=== PATIENT | male | born 1945 ===

== ENCOUNTER 2019-01-10 18:08 | Emergency (ER) | payer MEDICARE, OTHER ==
[2019-01-10] MEDS ORDERED: Lidocaine 1% 10 ML MDV ONE (18:20)
[2019-01-10] MEDS ORDERED: Diphtheria/Tetanus Toxoids,Adult (Td) 0.5 ML SDV IM ONE (18:37)
--- NOTE | 2019-01-10 18:58 | ER ---
HISTORY OF PRESENT ILLNESS: A 73-year-old male here with his . The patient was helping his grandson doing something with their fishing pole. He was going to cut some line with a fillet knife any he cut his left index finger. He stated that it did bleed quite profusely initially. They held pressure to the site and eventually the bleeding got better. The patient did not lose any function of the finger and denies any other injuries. He has not had a tetanus shot in many years. OBJECTIVE: GENERAL APPEARANCE: The patient is awake and alert, no obvious distress. VITAL SIGNS: Reviewed as listed. PHYSICAL EXAM: Examining the left index finger reveals a U- shaped laceration over the medial and dorsal aspect of the finger just distal to the DIP joint. With mild pressure, the wound edges open up and there was some bleeding that is recurring. The patient can flex and extend the finger fully and has good strength against resistance, both with flexion and extension. DIAGNOSIS: Laceration to finger. TREATMENT PLAN: A tourniquet was applied to the base of the finger after which I injected 1% lidocaine without epi for anesthesia locally. We then acquired a sterile field and I cleansed the wound well with a Betadine/sterile water solution followed by suturing. I used 5-0 Ethilon and it required 7 sutures to close the wound. The wound measures 3 cm in length. The tourniquet at the base of the finger was promptly removed. Post care, the patient will have a pressure dressing applied by nursing staff. He is to keep this on for at least 24 hours up to 48 hours if it stays clean and dry. They are to monitor for infection. Tylenol can be used as needed for pain. The sutures should come out in about 10 days because this is in an area where there was some skin tension. Followup is sooner on a p.r.n. basis. The patient will get a tetanus shot this evening. His is a nurse. They have no further questions. CRS/MODL /[id number]
== END 2019-01-10 18:40 | disposition home or self-care (01) ==
LOC: LB.ED 18:08
DX: S61.211A Laceration without foreign body of left index finger without damage to nail, initial encounter (principal); Z23 Encounter for immunization; W26.0XXA Contact with knife, initial encounter
CPT/HCPCS: 12002; 90471; 90714; 99282; J2001

== ENCOUNTER 2021-06-08 10:17 | Emergency (ER) | payer MEDICARE ==
[2021-06-08] MEDS ORDERED: IMDEVIMAB IV SCH (13:00)
[2021-06-08] MEDS ORDERED: Sodium Chloride 0.9% 1,000 ML IV SCH (13:00)
[2021-06-08] MEDS ORDERED: CASIRIVIMAB IV SCH (13:00)
[2021-06-08] MEDS ORDERED: SODIUM CHLORIDE 0.9% IV SCH (13:00)
--- NOTE | 2021-06-08 14:18 | EDM.PDOC ---
ED HPI GENERAL MEDICAL PROBLEM - General Chief Complaint: Respiratory Problem Stated Complaint: RESPIRATORY Time Seen by Provider: 06/08/21 10:30 - History of Present Illness INITIAL COMMENTS - FREE TEXT/NARRATIVE: Pt comes in with C/O not feeling well. He has coughing, and feels run down. This has been going on for almost 2 weeks. He is concerned about Covid. - Related Data Allergies Allergy/AdvReac Type Severity Reaction Status Date / Time No Known Allergies Allergy Verified 06/08/21 10:50 Home Meds: Home Meds FLUoxetine HCl [Prozac] 20 mg PO DAILY 06/08/21 [History] Past Medical History Psychiatric History: Reports: Anxiety Other Dermatologic History: shingles - Infectious Disease History Infectious Disease History: Reports: Shingles Social & Family History - Tobacco Use Tobacco Use Status *Q: Former Tobacco User Used Tobacco, but Quit: Yes Month/Year Tobacco Last Used: 05/22/21 ED ROS GENERAL - Review of Systems Review Of Systems: Comprehensive ROS is negative, except as noted in HPI. Constitutional: Reports: Weakness Respiratory: Reports: Cough ED EXAM, GENERAL - Physical Exam Exam: See Below General Appearance: Other (pt looks a little pale. No respiratory disresss.) Course - Vital Signs Last Recorded V/S: Last Vital Signs Temp 98.5 F 06/08/21 10:17 Pulse 89 06/08/21 10:17 Resp 16 06/08/21 10:17 BP 111/70 06/08/21 10:17 Pulse Ox 90 L 06/08/21 10:17 - Orders/Labs/Meds Orders: Active Orders 24 hr Category Date Time Status Imdevimab [Imdevimab (EUA)] 600 mg Med 06/08/21 13:00 Active Casirivimab [Casirivimab (EUA)] 600 mg Sodium Chloride 0.9% [Normal Saline] 100 ml IV ASDIRECTED Sodium Chloride 0.9% [Normal Saline] 1,000 ml Med 06/08/21 13:00 Active IV ASDIRECTED Medication Orders Sodium Chloride (Normal Saline) 1,000 mls @ 500 mls/hr IV ASDIRECTED LAKISHA Last Admin: 06/08/21 12:45 Dose: 500 mls/hr Documented by: WOJCIECH Non-Formulary Medication 600 mg/ Non-Formulary Medication 600 mg/ Sodium Chloride 110 mls @ 310 mls/hr IV ASDIRECTED LAKISHA Stop: 06/08/21 23:59 Last Admin: 06/08/21 13:10 Dose: 310 mls/hr Documented by: WOJCIECH Labs: Laboratory Tests 06/08/21 06/08/21 06/08/21 Range/Units 10:20 10:22 10:22 WBC 2.8 L (4.0-11.0) K/uL RBC 4.43 L (4.50-6.50) M/uL Hgb 13.6 (13.0-18.0) g/dL Hct 39.9 L (40.0-54.0) % MCV 90 (76-96) fL MCH 30.7 (27.0-32.0) pg MCHC 34.1 (31.0-35.0) g/dL RDW 13.8 (11.0-16.0) % Plt Count 84 L (150-400) K/uL MPV 11.4 H (6.0-10.0) fL Neut % (Auto) 80.2 H (45.0-70.0) % Lymph % (Auto) 10.6 L (20.0-40.0) % [place] % (Auto) 6.4 (3.0-10.0) % Eos % (Auto) 0.0 L (1.0-5.0) % Baso % (Auto) 2.8 H (0.0-0.5) % Neut # (Auto) 2.27 (2.00-7.50) K/uL Lymph # (Auto) 0.30 L (1.50-4.00) K/uL [place] # (Auto) 0.18 L (0.20-0.80) K/uL Eos # (Auto) 0.00 L (0.04-0.40) K/uL Baso # (Auto) 0.08 (0.02-0.10) K/uL Sodium 135 L (136-145) mmol/L Potassium 3.4 L (3.5-5.1) mmol/L Chloride 101 (98-107) mmol/L Carbon Dioxide 21.0 (21.0-32.0) mmol/L Anion Gap 16.4 H (5.0-15.0) mmol/L BUN 25 (8-26) mg/dL Creatinine 1.17 (0.70-1.30) mg/dL Est Cr Clr Drug Dosing 66.20 mL/min Estimated GFR (MDRD) > 60 (>60) MLS/MIN BUN/Creatinine Ratio 21.4 (6-25) Glucose 146 H (74-100) mg/dL Calcium 8.3 L (8.5-10.1) mg/dL Total Bilirubin 1.2 H (0.0-1.0) mg/dL AST 35 (15-37) U/L ALT 29 (12-78) U/L Alkaline Phosphatase 63 (46-116) U/L Total Protein 6.3 L (6.4-8.2) g/dL Albumin 3.0 L (3.4-5.0) g/dL Globulin 3.3 (2.2-4.2) g/dL Albumin/Globulin Ratio 0.9 (0.8-2.0) Urine Color Urine Appearance (CLEAR) Urine pH (5.0-8.0) Ur Specific [place] (1.003-1.030) Urine Protein (NEGATIVE) mg/dL Urine Glucose (UA) (NEGATIVE) mg/dL Urine Ketones (NEGATIVE) mg/dL Urine Occult Blood (NEGATIVE) Urine Nitrite (NEGATIVE) Urine Bilirubin (NEGATIVE) Urine Urobilinogen (0.2-1.0) E.U./dL Ur Leukocyte Esterase (NEGATIVE) Urine RBC /HPF Urine WBC /HPF Ur Squamous Epith Cells /HPF Amorphous Sediment /HPF SARS-CoV-2 RNA (OLIVIER) Positive H (NEGATIVE) 06/08/21 Range/Units 10:59 WBC (4.0-11.0) K/uL RBC (4.50-6.50) M/uL Hgb (13.0-18.0) g/dL Hct (40.0-54.0) % MCV (76-96) fL MCH (27.0-32.0) pg MCHC (31.0-35.0) g/dL RDW (11.0-16.0) % Plt Count (150-400) K/uL MPV (6.0-10.0) fL Neut % (Auto) (45.0-70.0) % Lymph % (Auto) (20.0-40.0) % [place] % (Auto) (3.0-10.0) % Eos % (Auto) (1.0-5.0) % Baso % (Auto) (0.0-0.5) % Neut # (Auto) (2.00-7.50) K/uL Lymph # (Auto) (1.50-4.00) K/uL [place] # (Auto) (0.20-0.80) K/uL Eos # (Auto) (0.04-0.40) K/uL Baso # (Auto) (0.02-0.10) K/uL Sodium (136-145) mmol/L Potassium (3.5-5.1) mmol/L Chloride (98-107) mmol/L Carbon Dioxide (21.0-32.0) mmol/L Anion Gap (5.0-15.0) mmol/L BUN (8-26) mg/dL Creatinine (0.70-1.30) mg/dL Est Cr Clr Drug Dosing mL/min Estimated GFR (MDRD) (>60) MLS/MIN BUN/Creatinine Ratio (6-25) Glucose (74-100) mg/dL Calcium (8.5-10.1) mg/dL Total Bilirubin (0.0-1.0) mg/dL AST (15-37) U/L ALT (12-78) U/L Alkaline Phosphatase (46-116) U/L Total Protein (6.4-8.2) g/dL Albumin (3.4-5.0) g/dL Globulin (2.2-4.2) g/dL Albumin/Globulin Ratio (0.8-2.0) Urine Color Yellow Urine Appearance Clear (CLEAR) Urine pH 6.0 (5.0-8.0) Ur Specific [place] >= 1.030 (1.003-1.030) Urine Protein 100 H (NEGATIVE) mg/dL Urine Glucose (UA) Negative (NEGATIVE) mg/dL Urine Ketones 15 H (NEGATIVE) mg/dL Urine Occult Blood Moderate H (NEGATIVE) Urine Nitrite Negative (NEGATIVE) Urine Bilirubin Small H (NEGATIVE) Urine Urobilinogen 2.0 H (0.2-1.0) E.U./dL Ur Leukocyte Esterase Negative (NEGATIVE) Urine RBC 0-5 H /HPF Urine WBC 0-5 H /HPF Ur Squamous Epith Cells Few /HPF Amorphous Sediment Many /HPF SARS-CoV-2 RNA (OLIVIER) (NEGATIVE) Meds: Medications Generic Name Dose Route Start Last Admin Trade Name Rodrigo PRN Reason Stop Dose Admin Sodium Chloride 1,000 mls @ 500 mls/hr 06/08/21 13:00 06/08/21 12:45 Normal Saline IV 500 mls/hr ASDIRECTED LAKISHA Administration Non-Formulary Medication 600 110 mls @ 310 mls/hr 06/08/21 13:00 06/08/21 13:10 mg/ Non-Formulary Medication IV 06/08/21 23:59 310 mls/hr 600 mg/ Sodium Chloride ASDIRECTED LAKISHA Administration - Re-Assessments/Exams Free Text/Narrative Re-Assessment/Exam: 06/08/21 14:15 Covid is positive. He was given Regeneron IV. His 02 sats have been around 93% on RA. He will be discharged home with an 02 monitor. Rest - take OTC meds as needed. Call or come back if his condition gets worse. Departure - Departure Time of Disposition: 14:30 Disposition: Home, Self-Care 01 Clinical Impression: COVID-19 - Discharge Information *PRESCRIPTION DRUG MONITORING PROGRAM REVIEWED*: No *COPY OF PRESCRIPTION DRUG MONITORING REPORT IN PATIENT SMITHA: No Referrals: PCP,None [Primary Care Provider] - Additional Instructions: Home - rest - Use OTC meds as needed. Monitor oxygen level as needed. Call or come back if condition gets worse. Sepsis Event Note (ED) - Evaluation Sepsis Screening Result: No Definite Risk - Focused Exam Vital Signs: Vital Signs Temp Pulse Resp BP Pulse Ox 06/08/21 10:17 98.5 F 89 16 111/70 90 L - My Orders Last 24 Hours: My Active Orders 06/08/21 13:00 Imdevimab [Imdevimab (EUA)] 600 mg Casirivimab [Casirivimab (EUA)] 600 mg Sodium Chloride 0.9% [Normal Saline] 100 ml IV ASDIRECTED Sodium Chloride 0.9% [Normal Saline] 1,000 ml IV ASDIRECTED - Assessment/Plan Last 24 Hours: My Active Orders 06/08/21 13:00 Imdevimab [Imdevimab (EUA)] 600 mg Casirivimab [Casirivimab (EUA)] 600 mg Sodium Chloride 0.9% [Normal Saline] 100 ml IV ASDIRECTED Sodium Chloride 0.9% [Normal Saline] 1,000 ml IV ASDIRECTED
== END 2021-06-08 14:15 | disposition home or self-care (01) ==
LOC: LB.ED 10:17
DX: U07.1 COVID-19 (principal); Z87.891 Personal history of nicotine dependence
CPT/HCPCS: 36415; 80053; 81001; 85025; 99283; J7030; M0243; Q0243; U0002

== ENCOUNTER 2021-07-09 10:00 | Inpatient (IN) | payer MEDICARE, OTHER ==
[~2021-07-09 10:00] MED LIST: Albuterol/Ipratropium 3.0-0.5 MG/3 ML Neb Soln NEB ONE
[2021-07-09] MEDS ORDERED: methylPREDNISolone Sodium Succinate 125 MG/2 ML SDV IVPUSH ONE (13:31)
[2021-07-09] MEDS ORDERED: methylPREDNISolone Sodium Succinate 125 MG/2 ML SDV ONE (13:50)
--- NOTE | 2021-07-09 15:25 | EDM.PDOC ---
ED HPI GENERAL MEDICAL PROBLEM - General Chief Complaint: Respiratory Problem Stated Complaint: O2 SATURATION LEVELS LOW Time Seen by Provider: 07/09/21 09:58 - History of Present Illness INITIAL COMMENTS - FREE TEXT/NARRATIVE: Pt is here with his with C/O SOB and some coughing. He has has these symptoms for several weeks after being diagnosed with Covid. But last night it got worse. Cough is dry, but he tells me he can't get enough air sometimes. - Related Data Allergies Allergy/AdvReac Type Severity Reaction Status Date / Time No Known Allergies Allergy Verified 07/09/21 11:09 Home Meds: Home Meds FLUoxetine HCl [Prozac] 20 mg PO DAILY 06/08/21 [History] Naproxen Sodium 1 tab PO DAILY 07/09/21 [History] Past Medical History Psychiatric History: Reports: Anxiety Other Psychiatric History: on prozac Other Dermatologic History: shingles - Infectious Disease History Infectious Disease History: Reports: Shingles - Past Surgical History Other Respiratory Surgeries/Procedures: Covid 19 infection may 2021 Social & Family History - Recreational Drug Use Recreational Drug Use: No ED ROS GENERAL - Review of Systems Review Of Systems: Comprehensive ROS is negative, except as noted in HPI. Respiratory: Reports: Shortness of Breath, Cough ED EXAM, GENERAL - Physical Exam Exam: See Below Free Text/Narrative:: Pt is a little anxious at first, but after getting 02 he calmed down quickly. Sats were in the lower 80's at first but came up to 95 quickly at 4 liters. Respiratory/Chest: Rhonchi (at end of expirations scattered.) #1 Interpretation EKG Date: 07/09/21 Time: 13:30 Rhythm: NSR (No acute changes.) Course - Vital Signs Last Recorded V/S: Last Vital Signs Temp 97.8 F 07/09/21 12:00 Pulse 75 07/09/21 14:33 Resp 20 07/09/21 14:33 BP 103/60 07/09/21 14:33 Pulse Ox 90 L 07/09/21 14:33 - Orders/Labs/Meds Orders: Active Orders 24 hr Category Date Time Status RT Aerosol Therapy [RC] ASDIRECTED Care 07/09/21 09:56 Active Chest 1V Frontal [CR] Stat Exams 07/09/21 09:58 Taken Chest w Cont [CT] Stat Exams 07/09/21 10:50 Taken Medication Orders Amoxicillin (Amoxicillin 500 Mg Cap) 1,000 mg PO Q8H LAKISHA Stop: 07/16/21 23:59 Azithromycin (Azithromycin 250 Mg Tab) 500 mg PO DAILY LAKISHA Stop: 07/13/21 23:59 Fluoxetine HCl (Fluoxetine 20 Mg Cap) 20 mg PO DAILY LAKISHA Labs: Laboratory Tests 07/09/21 07/09/21 07/09/21 Range/Units 09:56 09:56 09:57 WBC 5.8 D (4.0-11.0) K/uL RBC 3.92 L (4.50-6.50) M/uL Hgb 11.7 L (13.0-18.0) g/dL Hct 35.5 L (40.0-54.0) % MCV 91 (76-96) fL MCH 29.8 (27.0-32.0) pg MCHC 33.0 (31.0-35.0) g/dL RDW 15.0 (11.0-16.0) % Plt Count 186 D (150-400) K/uL MPV 10.9 H (6.0-10.0) fL Add Manual Diff Yes Neutrophils % (Manual) 82.0 H (45.0-70.0) % Lymphocytes % (Manual) 12.0 L (20.0-40.0) % Monocytes % (Manual) 5.0 (3.0-10.0) % Eosinophils % (Manual) 1.0 (1.0-5.0) % Differential Comment P[employer] Tender Plt Morphology Comment See note D-Dimer, Quantitative (0-400) ng/mL Sodium 138 (136-145) mmol/L Potassium 3.8 (3.5-5.1) mmol/L Chloride 106 (98-107) mmol/L Carbon Dioxide 21.0 (21.0-32.0) mmol/L Anion Gap 14.8 (5.0-15.0) mmol/L BUN 23 (8-26) mg/dL Creatinine 1.15 (0.70-1.30) mg/dL Est Cr Clr Drug Dosing 67.36 mL/min Estimated GFR (MDRD) > 60 (>60) MLS/MIN BUN/Creatinine Ratio 20.0 (6-25) Glucose 144 H (74-100) mg/dL Calcium 8.5 (8.5-10.1) mg/dL Total Bilirubin 1.6 H D (0.0-1.0) mg/dL AST 31 (15-37) U/L ALT 43 (12-78) U/L Alkaline Phosphatase 68 (46-116) U/L Troponin I < 0.017 (0.000-0.060) ng/mL Total Protein 6.1 L (6.4-8.2) g/dL Albumin 2.6 L (3.4-5.0) g/dL Globulin 3.5 (2.2-4.2) g/dL Albumin/Globulin Ratio 0.7 L (0.8-2.0) 07/09/21 Range/Units 09:57 WBC (4.0-11.0) K/uL RBC (4.50-6.50) M/uL Hgb (13.0-18.0) g/dL Hct (40.0-54.0) % MCV (76-96) fL MCH (27.0-32.0) pg MCHC (31.0-35.0) g/dL RDW (11.0-16.0) % Plt Count (150-400) K/uL MPV (6.0-10.0) fL Add Manual Diff Neutrophils % (Manual) (45.0-70.0) % Lymphocytes % (Manual) (20.0-40.0) % Monocytes % (Manual) (3.0-10.0) % Eosinophils % (Manual) (1.0-5.0) % Differential Comment Plt Morphology Comment D-Dimer, Quantitative 771 H (0-400) ng/mL Sodium (136-145) mmol/L Potassium (3.5-5.1) mmol/L Chloride (98-107) mmol/L Carbon Dioxide (21.0-32.0) mmol/L Anion Gap (5.0-15.0) mmol/L BUN (8-26) mg/dL Creatinine (0.70-1.30) mg/dL Est Cr Clr Drug Dosing mL/min Estimated GFR (MDRD) (>60) MLS/MIN BUN/Creatinine Ratio (6-25) Glucose (74-100) mg/dL Calcium (8.5-10.1) mg/dL Total Bilirubin (0.0-1.0) mg/dL AST (15-37) U/L ALT (12-78) U/L Alkaline Phosphatase (46-116) U/L Troponin I (0.000-0.060) ng/mL Total Protein (6.4-8.2) g/dL Albumin (3.4-5.0) g/dL Globulin (2.2-4.2) g/dL Albumin/Globulin Ratio (0.8-2.0) Meds: Medications Generic Name Dose Route Start Last Admin Trade Name Freq PRN Reason Stop Dose Admin Amoxicillin 1,000 mg 07/09/21 15:15 Amoxicillin 500 Mg Cap PO 07/16/21 23:59 Q8H LAKISHA Azithromycin 500 mg 07/09/21 15:15 Azithromycin 250 Mg Tab PO 07/13/21 23:59 DAILY LAKISHA Fluoxetine HCl 20 mg 07/10/21 08:00 Fluoxetine 20 Mg Cap PO DAILY LAKISHA Discontinued Medications Generic Name Dose Route Start Last Admin Trade Name Freq PRN Reason Stop Dose Admin Albuterol/Ipratropium 3 ml 07/09/21 09:55 07/09/21 10:00 Albuterol/Ipratropium 3.0-0.5 Mg/3 Ml Neb Soln NEB 07/09/21 09:56 3 ml ONETIME ONE Administration Methylprednisolone Sodium Succinate 125 mg 07/09/21 13:31 07/09/21 13:50 Methylprednisolone Sodium Succinate 125 Mg/2 Ml Sdv IVPUSH 07/09/21 13:32 125 mg ONETIME ONE Administration Methylprednisolone Sodium Succinate Confirm 07/09/21 13:50 07/09/21 14:32 Methylprednisolone Sodium Succinate 125 Mg/2 Ml Sdv Administered 07/09/21 13:51 Not Given Dose 125 mg .[address] [facility] ONE - Radiology Interpretation Free Text/Narrative:: CXR shows patchy infiltrates bilateral. D-Dimer is up at 770. other labs are ok. CT chest was done with PE protocol, showing Pneumonia including Covid. Pt is feeling well on O2 at 2 to 4 liters. When we try to wean down his sats drop into the 80's. We talked about sending him home, but can't get O2 to go with him. So we will admit the pt for Abx, IV fluids, and O2. Departure - Departure Time of Disposition: 15:00 Disposition: Admitted As Inpatient 68 Condition: Good Clinical Impression: Pneumonia Qualifiers: Pneumonia type: due to unspecified organism Laterality: bilateral Lung location: unspecified part of lung Qualified Code(s): J18.9 - Pneumonia, unspecified organism - Discharge Information *PRESCRIPTION DRUG MONITORING PROGRAM REVIEWED*: Yes *COPY OF PRESCRIPTION DRUG MONITORING REPORT IN PATIENT SMITHA: Yes Sepsis Event Note (ED) - Evaluation Sepsis Screening Result: No Definite Risk - Focused Exam Vital Signs: Vital Signs Temp Pulse Resp BP Pulse Ox 07/09/21 14:33 75 20 103/60 90 L 07/09/21 12:30 78 20 99/63 94 L 07/09/21 12:00 97.8 F 71 20 124/68 91 L 07/09/21 11:35 97.8 F 77 20 98/64 92 L 07/09/21 11:18 73 20 106/67 93 L 07/09/21 10:26 97.8 F 82 20 101/65 95 07/09/21 10:05 91 20 134/85 83 L 07/09/21 09:58 97.2 F 80 20 134/85 98 - My Orders Last 24 Hours: My Active Orders 07/09/21 09:56 RT Aerosol Therapy [RC] ASDIRECTED 07/09/21 09:58 Chest 1V Frontal [CR] Stat 07/09/21 10:50 Chest w Cont [CT] Stat - Assessment/Plan Last 24 Hours: My Active Orders 07/09/21 09:56 RT Aerosol Therapy [RC] ASDIRECTED 07/09/21 09:58 Chest 1V Frontal [CR] Stat 07/09/21 10:50 Chest w Cont [CT] Stat
--- NOTE | 2021-07-09 15:33 | CT ---
DATE OF SERVICE: 07/09/2021 CLINICAL DATA: SOB ENHANCED CHEST CT: Multislice acquisition through the chest with IV contrast was performed. No priors. No evidence of PE. No pneumothorax. No pleural effusions. No aortic aneurysm or dissection. There are extensive ground glass opacities scattered throughout both lungs with patchy areas of consolidation. Viral pneumonia is suspected. The heart size is normal. No significant pericardial effusion. There are moderate coronary artery calcifications. No hilar or mediastinal adenopathy. There is degenerative disc disease throughout the thoracic spine. No other significant findings. [id number] [facility]
--- NOTE | 2021-07-09 15:35 | CR ---
DATE OF SERVICE: 07/09/2021 CLINICAL DATA: SOB AP CHEST: No priors. The heart size is normal. There is calcification of the aortic arch. There are extensive patchy ground glass opacities throughout both lungs suspicious for viral pneumonia. No pneumothorax. No pleural effusions. [id number] [facility]
[2021-07-09] MEDS ORDERED: Sodium Chloride 0.9% 1,000 ML IV ONE (15:48)
[2021-07-09] MEDS: Azithromycin 250 MG Tab PO SCH (15:56)
[2021-07-09] MEDS: Amoxicillin 500 MG Cap PO SCH ×2 (15:56→22:02)
[2021-07-09] MEDS: Albuterol/Ipratropium 3.0-0.5 MG/3 ML Neb Soln NEB PRN ×2 (16:50→21:47)
--- NOTE | 2021-07-09 21:57 | ADMIT ---
HISTORY OF PRESENT ILLNESS: This 76-year-old male was being admitted through the ER for pneumonia and hypotension. The patient was diagnosed with covid in May and has been having some problems with coughing and shortness of breath, which got worse over the last 24 hours. He came into the ER today and was diagnosed with pneumonia and hypotension. The patient is being admitted for antibiotics, some IV fluids, and most importantly oxygen supplementation. His O2 sats are in 80s without oxygen at 4 L. He maintained in the low to mid 90s. The patient's condition improved as soon as O2 was applied in the ER. We did rule out a PE today with a slightly elevated D-dimer. PHYSICAL EXAMINATION: VITAL SIGNS: Upon admission to the floor reveal a pulse of 75, temp 97.8, blood pressure 103/60, respirations 20, O2 saturation sats are currently 90% on 4 L. CRS/MODL /[id number] BETZAIDA
[2021-07-10] MEDS: Albuterol/Ipratropium 3.0-0.5 MG/3 ML Neb Soln NEB PRN ×5 (01:50→21:39)
[2021-07-10] MEDS: Amoxicillin 500 MG Cap PO SCH ×2 (07:46)
[2021-07-10] MEDS: FLUoxetine 20 MG Cap PO SCH (07:52)
[2021-07-10] MEDS: Azithromycin 250 MG Tab PO SCH (07:52)
[2021-07-10] MEDS: LORazepam 1 MG Tab PO PRN ×2 (07:53→21:39)
--- NOTE | 2021-07-10 10:03 | PN ---
DATE OF VISIT: 07/10/2021 SUBJECTIVE: This 76-year-old male was admitted yesterday for pneumonia post coronavirus disease. He also was hypoxic and having a need for oxygen supplementation was the main reason he was admitted. The patient's condition is largely unchanged from yesterday. He was put on amoxicillin and Zithromax orally. He was given Solu-Medrol 125 mg IV yesterday. He was put on an IV normal saline for a few hours, but he was able to eat and drink very well, so we stopped it during the night. The patient still becomes hypoxic with activity. He has oxygen on at 5 L per nasal cannula. When he is resting, his sats are in the low 90s. With any activity, they will drop down to 90 or even into the upper 80s. The patient does become a little anxious at times as well and has been given Ativan a couple of times, which helped calm him down. When I saw the patient this morning, he states he is feeling okay, but does not feel like he is really improving. Lung sounds reveal slightly reduced air exchange throughout the lung mcclure. I only hear minimal rhonchi in the bases today, otherwise clear lung sounds. Vital signs today revealed temperature is 98.2, pulse 76, blood pressure 106/53, respirations 24, O2 sats when taken were 90% on 5 L. TREATMENT PLAN: Today, we will change his antibiotics from oral to IV starting him on Levaquin 750 mg daily, and I will start Pulmicort treatments b.i.d. We will discontinue the p.o. medications today and continue to monitor the patient. CRS/MODL /[id number]
[2021-07-10] MEDS: Budesonide 0.5 MG/2 ML Neb Susp NEB SCH ×2 (11:09→19:36)
[2021-07-10] MEDS ORDERED: Levofloxacin/Dextrose 5%-Water 150 ML IV ONE (11:17)
[2021-07-10] MEDS: Levofloxacin/Dextrose 5%-Water 750 MG in Levofloxacin/Dextrose 5%-Water 150 ML IV SCH (11:21)
[2021-07-10] MEDS ORDERED: Albuterol/Ipratropium 3.0-0.5 MG/3 ML Neb Soln ONE (13:34)
[2021-07-11] MEDS: Albuterol/Ipratropium 3.0-0.5 MG/3 ML Neb Soln NEB PRN ×4 (02:23→15:58)
[2021-07-11] MEDS: Budesonide 0.5 MG/2 ML Neb Susp NEB SCH ×2 (07:53→19:32)
[2021-07-11] MEDS: FLUoxetine 20 MG Cap PO SCH (07:53)
--- NOTE | 2021-07-11 09:41 | PCM.PN ---
- General Info Date of Service: 07/11/21 - Patient Data Vitals - Most Recent: Last Vital Signs Temp 37.0 C 07/11/21 06:00 Pulse 85 07/11/21 06:00 Resp 26 H 07/11/21 06:00 BP 121/68 07/11/21 06:00 Pulse Ox 93 L 07/11/21 02:00 Weight - Most Recent: 92.261 kg Lab Results Last 24 Hours: Laboratory Results - last 24 hr 07/11/21 07/11/21 Range/Units 08:00 08:00 WBC 7.3 D (4.0-11.0) K/uL RBC 3.47 L (4.50-6.50) M/uL Hgb 10.3 L (13.0-18.0) g/dL Hct 32.3 L (40.0-54.0) % MCV 93 (76-96) fL MCH 29.7 (27.0-32.0) pg MCHC 31.9 (31.0-35.0) g/dL RDW 15.3 (11.0-16.0) % Plt Count 181 (150-400) K/uL MPV 10.4 H (6.0-10.0) fL Neut % (Auto) 80.4 H (45.0-70.0) % Lymph % (Auto) 7.9 L (20.0-40.0) % [place] % (Auto) 7.9 (3.0-10.0) % Eos % (Auto) 0.3 L (1.0-5.0) % Baso % (Auto) 3.5 H (0.0-0.5) % Neut # (Auto) 5.90 (2.00-7.50) K/uL Lymph # (Auto) 0.58 L (1.50-4.00) K/uL [place] # (Auto) 0.58 (0.20-0.80) K/uL Eos # (Auto) 0.02 L (0.04-0.40) K/uL Baso # (Auto) 0.26 H (0.02-0.10) K/uL Sodium 144 (136-145) mmol/L Potassium 4.0 (3.5-5.1) mmol/L Chloride 110 H (98-107) mmol/L Carbon Dioxide 24.0 (21.0-32.0) mmol/L Anion Gap 14.0 (5.0-15.0) mmol/L BUN 22 (8-26) mg/dL Creatinine 0.99 (0.70-1.30) mg/dL Est Cr Clr Drug Dosing 78.24 mL/min Estimated GFR (MDRD) > 60 (>60) MLS/MIN BUN/Creatinine Ratio 22.2 (6-25) Glucose 119 H (74-100) mg/dL Calcium 8.4 L (8.5-10.1) mg/dL Total Bilirubin 0.3 D (0.0-1.0) mg/dL AST 100 H (15-37) U/L ALT 139 H (12-78) U/L Alkaline Phosphatase 67 (46-116) U/L Total Protein 5.3 L (6.4-8.2) g/dL Albumin 2.2 L (3.4-5.0) g/dL Globulin 3.1 (2.2-4.2) g/dL Albumin/Globulin Ratio 0.7 L (0.8-2.0) Wiley Results Last 24 Hours: Microbiology 07/09/21 15:43 MRSA Surveillance Culture - Final Nares, Right NO MRSA ISOLATED Med Orders - Current: Current Medications Albuterol/Ipratropium (Albuterol/Ipratropium 3.0-0.5 Mg/3 Ml Neb Soln) 3 ml NEB Q4H PRN PRN Reason: Dyspnea Last Admin: 07/11/21 06:12 Dose: 3 ml Documented by: Budesonide (Budesonide 0.5 Mg/2 Ml Neb Susp) 0.5 mg NEB BID [facility] Last Admin: 07/11/21 07:53 Dose: 0.5 mg Documented by: Fluoxetine HCl (Fluoxetine 20 Mg Cap) 20 mg PO DAILY [facility] Last Admin: 07/11/21 07:53 Dose: 20 mg Documented by: Levofloxacin/Dextrose 750 mg/ (Levofloxacin/Dextrose) 300 mls @ 100 mls/hr IV Q24H [facility] Last Admin: 07/10/21 11:21 Dose: 100 mls/hr Documented by: Lorazepam (Lorazepam 1 Mg Tab) 1 mg PO Q8H PRN PRN Reason: Anxiety Last Admin: 07/10/21 21:39 Dose: 1 mg Documented by: Discontinued Medications Albuterol/Ipratropium (Albuterol/Ipratropium 3.0-0.5 Mg/3 Ml Neb Soln) 3 ml NEB ONETIME ONE Stop: 07/09/21 09:56 Last Admin: 07/09/21 10:00 Dose: 3 ml Documented by: Albuterol/Ipratropium (Albuterol/Ipratropium 3.0-0.5 Mg/3 Ml Neb Soln) Confirm Administered Dose 3 ml .ROUTE .STK-MED ONE Stop: 07/10/21 13:35 Last Admin: 07/10/21 14:52 Dose: Not Given Documented by: Amoxicillin (Amoxicillin 500 Mg Cap) 1,000 mg PO Q8H [facility] Stop: 07/16/21 23:59 Last Admin: 07/10/21 07:46 Dose: 1,000 mg Documented by: Azithromycin (Azithromycin 250 Mg Tab) 500 mg PO DAILY [facility] Stop: 07/13/21 23:59 Last Admin: 07/10/21 07:52 Dose: 500 mg Documented by: Sodium Chloride (Normal Saline) 1,000 mls @ 125 mls/hr IV .BOLUS ONE Stop: 07/09/21 23:47 Last Admin: 07/09/21 16:04 Dose: 125 mls/hr Documented by: Levofloxacin/Dextrose (Levaquin In D5w 750 Mg/150 Ml) Confirm Administered Dose 150 mls @ as directed IV .STK-MED ONE Stop: 07/10/21 11:18 Last Admin: 07/10/21 14:52 Dose: Not Given Documented by: Methylprednisolone Sodium Succinate (Methylprednisolone Sodium Succinate 125 Mg/2 Ml Sdv) 125 mg IVPUSH ONETIME ONE Stop: 07/09/21 13:32 Last Admin: 07/09/21 13:50 Dose: 125 mg Documented by: Methylprednisolone Sodium Succinate (Methylprednisolone Sodium Succinate 125 Mg/2 Ml Sdv) Confirm Administered Dose 125 mg .ROUTE .STK-MED ONE Stop: 07/09/21 13:51 Last Admin: 07/09/21 14:32 Dose: Not Given Documented by: - Patient Data Lab Results Last 24 hrs: Laboratory Results - last 24 hr 07/11/21 07/11/21 Range/Units 08:00 08:00 WBC 7.3 D (4.0-11.0) K/uL RBC 3.47 L (4.50-6.50) M/uL Hgb 10.3 L (13.0-18.0) g/dL Hct 32.3 L (40.0-54.0) % MCV 93 (76-96) fL MCH 29.7 (27.0-32.0) pg MCHC 31.9 (31.0-35.0) g/dL RDW 15.3 (11.0-16.0) % Plt Count 181 (150-400) K/uL MPV 10.4 H (6.0-10.0) fL Neut % (Auto) 80.4 H (45.0-70.0) % Lymph % (Auto) 7.9 L (20.0-40.0) % [place] % (Auto) 7.9 (3.0-10.0) % Eos % (Auto) 0.3 L (1.0-5.0) % Baso % (Auto) 3.5 H (0.0-0.5) % Neut # (Auto) 5.90 (2.00-7.50) K/uL Lymph # (Auto) 0.58 L (1.50-4.00) K/uL [place] # (Auto) 0.58 (0.20-0.80) K/uL Eos # (Auto) 0.02 L (0.04-0.40) K/uL Baso # (Auto) 0.26 H (0.02-0.10) K/uL Sodium 144 (136-145) mmol/L Potassium 4.0 (3.5-5.1) mmol/L Chloride 110 H (98-107) mmol/L Carbon Dioxide 24.0 (21.0-32.0) mmol/L Anion Gap 14.0 (5.0-15.0) mmol/L BUN 22 (8-26) mg/dL Creatinine 0.99 (0.70-1.30) mg/dL Est Cr Clr Drug Dosing 78.24 mL/min Estimated GFR (MDRD) > 60 (>60) MLS/MIN BUN/Creatinine Ratio 22.2 (6-25) Glucose 119 H (74-100) mg/dL Calcium 8.4 L (8.5-10.1) mg/dL Total Bilirubin 0.3 D (0.0-1.0) mg/dL AST 100 H (15-37) U/L ALT 139 H (12-78) U/L Alkaline Phosphatase 67 (46-116) U/L Total Protein 5.3 L (6.4-8.2) g/dL Albumin 2.2 L (3.4-5.0) g/dL Globulin 3.1 (2.2-4.2) g/dL Albumin/Globulin Ratio 0.7 L (0.8-2.0) Result Diagrams: 07/11/21 08:00 07/11/21 08:00 Wiley Results Last 24 hrs: Microbiology 07/09/21 15:43 MRSA Surveillance Culture - Final Nares, Right NO MRSA ISOLATED Sepsis Event Note - Evaluation Sepsis Screening Result: No Definite Risk - Focused Exam Vital Signs: Vital Signs Temp Pulse Resp BP Pulse Ox 07/11/21 06:00 37.0 C 85 26 H 121/68 07/11/21 02:00 36.6 C 71 24 H 100/55 L 93 L 07/10/21 21:55 36.8 C 74 22 H 105/52 L 94 L - Problem List Review Problem List Initiated/Reviewed/Updated: Yes - Plan Plan:: [facility] Hospitalist CONSULTATION NOTE: eHospitalist was contacted by JOCELYNE Leonardo with request of assistance with medical management Hospital course: 76/M with history of former tobacco use, recent COVID-19 infect ion on 06/08/2021 who presented to the ED with complaints of shortness of breath. Currently requiring 5 L O2 with rest, desatting with exertion/ambulation. Has been started on Levaquin p.o., IV fluids. Work-up: WBC normal, hemoglobin low but at baseline for patient, platelets normal, D-dimer 771 (elevated), electrolytes within normal limits. AST and ALT elevated today CT chest with contrast with no evidence of PE, pneumothorax, pleural effusions. Did show extensive groundglass opacities scattered throughout both lungs and patchy areas of consolidation-suggestive of viral pneumonia. Chest x-ray reviewed, showing bilateral interstitial infiltrates. Recommendations: Based on chart review, information gathered from discussion with local provider, review of labs and imaging as noted above, I recommend the following: #Acute hypoxic respiratory failure Likely multifactorial, most likely from COVID-19 infection +/- bacterial pneumonia. -Recommend dexamethasone 6 mg daily -Out of window for Remdesevir -Recommend changing antibiotics to Cefepime and Doxycycline. -Continue incentive spirometry, duonebs as needed for wheezing. -DVT px with Lovenox SQ daily -Avoid excessive fluids. Consider 20 mg IV lasix if BP tolerates. Thank you for including [facility] in the patient's care. This service is available for further assistance as requested by your care team by calling [phone].
[2021-07-11] MEDS ORDERED: Levofloxacin/Dextrose 5%-Water 150 ML IV ONE (10:28)
[2021-07-11] MEDS: Levofloxacin/Dextrose 5%-Water 750 MG in Levofloxacin/Dextrose 5%-Water 150 ML IV SCH (10:30)
[2021-07-11] MEDS ORDERED: Dexamethasone 4 MG/ML SDV ONE (13:50)
[2021-07-11] MEDS: Doxycycline 100 MG Cap PO SCH ×2 (13:53→19:32)
--- NOTE | 2021-07-11 13:53 | CR ---
DATE OF SERVICE: 07/11/21 CLINICAL DATA: Pneumonia AP CHEST: Comparison is made to a prior exam dated 07/09/21. The heart size is stable. There are poorly defined ground-glass opacities in both lungs. There is mild progression within the right lung compared to the prior study. The left lung appears unchanged or slightly improved. No other interval changes. No pneumothorax. No pleural effusions. [id number] MTDD
[2021-07-11] MEDS: Enoxaparin 100 MG/1 ML Syringe SUBCUT SCH ×2 (13:55→19:33)
[2021-07-11] MEDS: Dexamethasone 4 MG/ML 5 ML MDV IVPUSH SCH (14:03)
--- NOTE | 2021-07-11 14:29 | PN ---
DATE OF VISIT: 07/11/2021 This 76-year-old male has been an inpatient now since Monday evening for pneumonia with COVID. He was diagnosed with COVID in May. The patient was developing more shortness of breath and coughing symptoms. He came in to the ER on Monday and was diagnosed with pneumonia. He currently is on Levaquin 750 mg IV daily in addition to Pulmicort treatments b.i.d. and DuoNeb treatments every 4-6 hours. The patient's condition has not really changed. He is on 4-5 L of O2 and when he is resting or not talking, his sats are in the mid 90s. With any kind of talking or activity, the sats will drop and if he takes his oxygen off to go to the bathroom, his sats drop significantly as low as the upper 60s. I did enlist the help of the e-hospitalist service today. After reviewing the patient's case, they suggested some changes. We will put the patient on dexamethasone to provide a more aggressive COVID treatment, based on the timeframe since the patient has been diagnosed with COVID. His antibiotics will be changed from Levaquin to cefepime and doxycycline and he will be started on Lovenox injections. OBJECTIVE: The patient's vital signs have really not changed from admission. He is eating well, drinking well and states that other than his breathing, he feels fine. Lung sounds today reveal a slightly reduced air exchange bilaterally. I do not hear any rales, wheezes, or rhonchi with inspiration or expiration. SKIN: Warm and dry. CARDIAC: Heart sounds distinct without murmurs. CRS/MODL /[id number] MTDD
[2021-07-11] MEDS: Cefepime 1 GM in Sodium Chloride 0.9% 50 ML IV SCH (19:32)
[2021-07-12] MEDS: Albuterol/Ipratropium 3.0-0.5 MG/3 ML Neb Soln NEB PRN ×2 (00:08→04:18)
[2021-07-12] MEDS: Enoxaparin 100 MG/1 ML Syringe SUBCUT SCH ×2 (07:29→19:37)
[2021-07-12] MEDS: Dexamethasone 4 MG/ML 5 ML MDV IVPUSH SCH (07:30)
[2021-07-12] MEDS: Cefepime 1 GM in Sodium Chloride 0.9% 50 ML IV SCH ×2 (07:30→19:37)
[2021-07-12] MEDS: Doxycycline 100 MG Cap PO SCH ×2 (07:31→19:37)
[2021-07-12] MEDS: FLUoxetine 20 MG Cap PO SCH (07:31)
[2021-07-12] MEDS: Budesonide 0.5 MG/2 ML Neb Susp NEB SCH ×2 (07:31→19:38)
[2021-07-12] MEDS: LORazepam 1 MG Tab PO PRN ×2 (09:05→20:03)
[2021-07-13] MEDS: Albuterol/Ipratropium 3.0-0.5 MG/3 ML Neb Soln NEB PRN ×2 (04:40)
[2021-07-13] MEDS ORDERED: Cefepime 1 GM Vial ONE (07:07)
[2021-07-13] MEDS: Enoxaparin 100 MG/1 ML Syringe SUBCUT SCH ×2 (07:09→19:11)
[2021-07-13] MEDS: Cefepime 1 GM in Sodium Chloride 0.9% 50 ML IV SCH ×2 (07:09→19:10)
[2021-07-13] MEDS: Dexamethasone 4 MG/ML 5 ML MDV IVPUSH SCH (07:10)
[2021-07-13] MEDS: Doxycycline 100 MG Cap PO SCH ×2 (07:10→19:10)
[2021-07-13] MEDS: FLUoxetine 20 MG Cap PO SCH (07:10)
[2021-07-13] MEDS: Budesonide 0.5 MG/2 ML Neb Susp NEB SCH ×2 (07:10→19:11)
[2021-07-13] MEDS: LORazepam 1 MG Tab PO PRN ×2 (08:18→19:14)
--- NOTE | 2021-07-13 10:29 | CR ---
Date of Service: 07/13/21 Clinical Data: Pneumonia re check. PORTABLE CHEST: Comparison is made to a prior exam dated 07/11/21. The heart size is stable. There are persistent bilateral infiltrates, however, they have improved radiographically bilaterally when compared to the prior study. No new abnormalities. No pneumothorax. No pleural effusion. [id number] [facility]
[2021-07-13] MEDS ORDERED: Furosemide 20 MG Tab PO ONE (10:59)
--- NOTE | 2021-07-13 12:59 | PN ---
DATE OF VISIT: 07/13/2021 HISTORY OF PRESENT ILLNESS: This patient has been in the hospital since the with pneumonia. He is currently improving. The patient is on dexamethasone 6 mg a day. He is taking cefepime and doxycycline for antibiotics and is on Lovenox. We did a chest x-ray today which showed obvious improvement in comparison to 2 days ago. The patient has been able to use the bathroom now without becoming short of breath. His O2 sats still dropped, but not as drastically as initially. The patient states he is feeling better and does not feel short of breath much anymore with oxygen on, it is currently at 4 L. There was some discussion about possible CHF playing a role here with this patient, so I did get a BMP today which is mildly elevated at 805. Labs otherwise are largely unchanged. He still has slight elevation in neutrophils. Liver enzymes were elevated 2 days ago. They are coming down today. Lung sounds today reveal a moderate reduction of air exchange throughout the lung mcclure, but I do not hear any rales, rhonchi, or wheezes. The patient is feeling better. TREATMENT AND PLAN: We will get a consult with pharmacy as far as hopefully discharging him tomorrow, staying on antibiotics for a while longer and a prednisone taper. I will consult with them in regard to this, and that we will also make arrangements for the patient to have home oxygen, if he feels good enough to leave for home tomorrow, I feel this is reasonable. The patient would very much like to do this. Vital signs today, blood pressure is in the 1 teens over 60s. He is afebrile. O2 sats are 95% on 4 L and pulse of 76. CRS/MODL /[id number]
[2021-07-14] MEDS: Doxycycline 100 MG Cap PO SCH (08:32)
[2021-07-14] MEDS: FLUoxetine 20 MG Cap PO SCH (08:32)
[2021-07-14] MEDS: Cefepime 1 GM in Sodium Chloride 0.9% 50 ML IV SCH (08:33)
[2021-07-14] MEDS: Enoxaparin 100 MG/1 ML Syringe SUBCUT SCH (08:33)
[2021-07-14] MEDS: Dexamethasone 4 MG/ML 5 ML MDV IVPUSH SCH (08:34)
[2021-07-14] MEDS: Budesonide 0.5 MG/2 ML Neb Susp NEB SCH (08:35)
--- NOTE | 2021-07-14 11:28 | PCM.DCSUM1 ---
Discharge Summary - Hospital Course Free Text/Narrative:: 76-year-old male was admitted to the hospital through the ER on July 09, 2021 for pneumonia, hypotension, low SPO2. Patient was treated with antibiotics and steroids. Patient improved with treatment, but will require at home oxygen to maintain SPO2 in acceptable range. Patient will go home with prescriptions for dexamethasone 6 mg once daily, Cefpodoxime 200 mg twice daily and doxycycline 100 mg twice daily. At home oxygen has been arranged for through [facility]. Patient is tolerating walking, believes he will be able to accomplish his ADLs, and will be picking him up today. The treatment plan was explained to the patient by both myself and in-house pharmacist, patient agrees to and understands treatment plan. Patient also understands that there is a very low threshold for coming back to the hospital if his condition does not continue to improve. All questions were answered to patient's satisfaction. HPI Initial Comments: Pneumonia admitted 07/09/2001, hypotension, low SPO2. Patient responded well to treatment, and is ready to be discharged in stable condition with treatment plan in place and follow-up in primary care provider's clinic on Monday. Brief History: Patient is eating well, bowel movements are normal, urination is normal. Patient is able to accomplish ADLs on his own without assistance, patient states he is ready to go home - Discharge Data Discharge Date: 07/14/21 Discharge Disposition: Home, Self-Care 01 Condition: Good - Referral to Home Health Primary Care Physician: PCP None - Patient Instructions Diet: Usual Diet as Tolerated Activity: No Strenuous Activities Showering/Bathing: May Shower Notify Provider of: Fever Other/Special Instructions: Increasing shortness of breath, increased weakness return to the ED - Discharge Plan *PRESCRIPTION DRUG MONITORING PROGRAM REVIEWED*: Yes *COPY OF PRESCRIPTION DRUG MONITORING REPORT IN PATIENT SMITHA: Yes Prescriptions/Med Rec: dexAMETHasone [Dexamethasone] 6 mg PO DAILY #21 tablet Doxycycline Hyclate 100 mg PO BID #10 capsule Cefpodoxime [Vantin] 200 mg PO BID 5 Days #10 tab Home Medications: Home Meds FLUoxetine HCl [Prozac] 20 mg PO DAILY 06/08/21 [History] Naproxen Sodium 1 tab PO DAILY 07/09/21 [History] Cefpodoxime [Vantin] 200 mg PO BID 5 Days #10 tab 07/14/21 [Rx] Doxycycline Hyclate 100 mg PO BID #10 capsule 07/14/21 [Rx] dexAMETHasone [Dexamethasone] 6 mg PO DAILY #21 tablet 07/14/21 [Rx] Oxygen Flow Rate (L/min): 4 (Nasal cannula) Maintain SpO2% greater than: 92 - Discharge Summary/Plan Comment DC Time >30 min.: No Total # of Minutes for Discharge Time: 25 Discharge Summary/Plan Comment: Plan is to follow-up with primary care provider, take prescriptions as prescribed, use at home O2 to be adjusted and/or discontinued by primary care provider at their discretion. Return to the ED with any increasing symptoms including shortness of breath lethargy weakness. - Patient Data Vitals - Most Recent: Last Vital Signs Temp 97.8 F 07/14/21 08:00 Pulse 65 07/14/21 08:00 Resp 18 07/14/21 08:00 BP 103/58 L 07/14/21 08:00 Pulse Ox 95 07/14/21 08:00 Weight - Most Recent: 200 lb 2 oz I&O - Last 24 hours: Intake & Output 07/13/21 07/14/21 07/14/21 22:59 06:59 14:59 Intake Total 50 Balance 50 Med Orders - Current: Current Medications Albuterol/Ipratropium (Albuterol/Ipratropium 3.0-0.5 Mg/3 Ml Neb Soln) 3 ml NEB Q4H PRN PRN Reason: Dyspnea Last Admin: 07/13/21 04:40 Dose: 3 ml Documented by: Budesonide (Budesonide 0.5 Mg/2 Ml Neb Susp) 0.5 mg NEB BID [facility] Last Admin: 07/14/21 08:35 Dose: 0.5 mg Documented by: Dexamethasone (Dexamethasone 4 Mg/Ml 5 Ml Mdv) 6 mg IVPUSH DAILY [facility] Last Admin: 07/14/21 08:34 Dose: 6 mg Documented by: Doxycycline Hyclate (Doxycycline 100 Mg Cap) 100 mg PO BID [facility] Last Admin: 07/14/21 08:32 Dose: 100 mg Documented by: Enoxaparin Sodium (Enoxaparin 100 Mg/1 Ml Syringe) 100 mg SUBCUT BID [facility] Last Admin: 07/14/21 08:33 Dose: 100 mg Documented by: Fluoxetine HCl (Fluoxetine 20 Mg Cap) 20 mg PO DAILY [facility] Last Admin: 07/14/21 08:32 Dose: 20 mg Documented by: Cefepime HCl 1 gm/ Sodium (Chloride) 50 mls @ 100 mls/hr IV Q12HR [facility] Last Admin: 07/14/21 08:33 Dose: 100 mls/hr Documented by: Lorazepam (Lorazepam 1 Mg Tab) 1 mg PO Q8H PRN PRN Reason: Anxiety Last Admin: 07/13/21 19:14 Dose: 1 mg Documented by: Discontinued Medications Albuterol/Ipratropium (Albuterol/Ipratropium 3.0-0.5 Mg/3 Ml Neb Soln) 3 ml NEB ONETIME ONE Stop: 07/09/21 09:56 Last Admin: 07/09/21 10:00 Dose: 3 ml Documented by: Albuterol/Ipratropium (Albuterol/Ipratropium 3.0-0.5 Mg/3 Ml Neb Soln) Confirm Administered Dose 3 ml .ROUTE .STK-MED ONE Stop: 07/10/21 13:35 Last Admin: 07/10/21 14:52 Dose: Not Given Documented by: Amoxicillin (Amoxicillin 500 Mg Cap) 1,000 mg PO Q8H [facility] Stop: 07/16/21 23:59 Last Admin: 07/10/21 07:46 Dose: 1,000 mg Documented by: Azithromycin (Azithromycin 250 Mg Tab) 500 mg PO DAILY [facility] Stop: 07/13/21 23:59 Last Admin: 07/10/21 07:52 Dose: 500 mg Documented by: Cefepime HCl (Cefepime 1 Gm Vial) Confirm Administered Dose 1 gm .ROUTE .STK-MED ONE Stop: 07/13/21 07:08 Last Admin: 07/13/21 07:55 Dose: Not Given Documented by: Dexamethasone (Dexamethasone 4 Mg/Ml Sdv) Confirm Administered Dose 8 mg .ROUTE .STK-MED ONE Stop: 07/11/21 13:51 Last Admin: 07/11/21 14:02 Dose: Not Given Documented by: Furosemide (Furosemide 20 Mg Tab) 20 mg PO ONETIME ONE Stop: 07/13/21 11:00 Last Admin: 07/13/21 11:00 Dose: 20 mg Documented by: Sodium Chloride (Normal Saline) 1,000 mls @ 125 mls/hr IV .BOLUS ONE Stop: 07/09/21 23:47 Last Admin: 07/09/21 16:04 Dose: 125 mls/hr Documented by: Levofloxacin/Dextrose 750 mg/ (Levofloxacin/Dextrose) 300 mls @ 100 mls/hr IV Q24H [facility] Last Admin: 07/11/21 10:30 Dose: 100 mls/hr Documented by: Levofloxacin/Dextrose (Levaquin In D5w 750 Mg/150 Ml) Confirm Administered Dose 150 mls @ as directed IV .STK-MED ONE Stop: 07/10/21 11:18 Last Admin: 07/10/21 14:52 Dose: Not Given Documented by: Levofloxacin/Dextrose (Levaquin In D5w 750 Mg/150 Ml) Confirm Administered Dose 150 mls @ as directed IV .STK-MED ONE Stop: 07/11/21 10:29 Last Admin: 07/11/21 13:14 Dose: Not Given Documented by: Methylprednisolone Sodium Succinate (Methylprednisolone Sodium Succinate 125 Mg/2 Ml Sdv) 125 mg IVPUSH ONETIME ONE Stop: 07/09/21 13:32 Last Admin: 07/09/21 13:50 Dose: 125 mg Documented by: Methylprednisolone Sodium Succinate (Methylprednisolone Sodium Succinate 125 Mg/2 Ml Sdv) Confirm Administered Dose 125 mg .ROUTE .STK-MED ONE Stop: 07/09/21 13:51 Last Admin: 07/09/21 14:32 Dose: Not Given Documented by:
[2021-07-14] MEDS ORDERED: cefTRIAXone 1 GM Vial ONE (16:43)
[2021-07-14] MEDS ORDERED: cefTRIAXone 1 GM Vial IM ONE (18:00)
== END 2021-07-14 17:03 | disposition home or self-care (01) | DRG 193 ==
LOC: LB.ED 10:00 → LB.MS 15:07
PROVIDERS: ADMIT Physician Assistant; ATTEND Physician Assistant
DX: J18.9 Pneumonia, unspecified organism (principal); J15.9 Unspecified bacterial pneumonia; J96.01 Acute respiratory failure with hypoxia; Z86.16 Personal history of COVID-19; F41.9 Anxiety disorder, unspecified; U09.9 Post COVID-19 condition, unspecified; Z88.8 Allergy status to other drugs, medicaments and biological substances; Z79.899 Other long term (current) drug therapy
CPT/HCPCS: 36415; 71045; 71260; 80053; 83880; 84484; 85025; 85379; 93005; 96374; 99285-25; A9270-GY; J0692; J0696; J1100; J1650; J1956; J2930; J7030; J7620-GY

== ENCOUNTER 2021-11-17 12:11 | Emergency (ER) | payer MEDICARE, OTHER ==
[2021-11-17] MEDS ORDERED: Magnesium Citrate Solution 296 ML Bottle PO ONE (13:20)
[2021-11-17] MEDS ORDERED: Magnesium Citrate Solution 296 ML Bottle ONE (13:26)
[2021-11-17] MEDS ORDERED: Sodium Chloride 0.9% 10 ML Syringe FLUSH PRN (15:56)
[2021-11-17] MEDS ORDERED: Piperacillin/Tazobactam 3.375 GM in Sodium Chloride 0.9% 100 ML IV SCH (16:00)
== END 2021-11-17 16:50 ==
LOC: LB.ED 12:11
DX: K57.32 Diverticulitis of large intestine without perforation or abscess without bleeding (principal); R91.1 Solitary pulmonary nodule
CPT/HCPCS: 36415; 74176; 80048; 83605; 85025; 96365; 99281; 99285-25; A0425; A0429; A9270-GY; J2543

== ENCOUNTER 2022-07-07 10:34 | Day surgery (SDC) | payer MEDICARE, OTHER ==
[~2022-07-07 10:34] MED LIST changes: -Albuterol/Ipratropium 3.0-0.5 MG/3 ML Neb Soln NEB ONE; +Metoclopramide 10 MG/2 ML SDV IV PRN; +Metoclopramide 10 MG/2 ML SDV IVPUSH PRN; +Sodium Chloride 0.9% 1,000 ML IV SCH
[2022-07-07] MEDS ORDERED: Propofol 200 MG/20 ML SDV ONE (12:00)
== END 2022-07-07 14:05 | disposition home or self-care (01) ==
LOC: LB.SDS 10:34
PROVIDERS: ATTEND Surgery
DX: Z12.11 Encounter for screening for malignant neoplasm of colon (principal); K57.30 Diverticulosis of large intestine without perforation or abscess without bleeding; Z98.890 Other specified postprocedural states
CPT/HCPCS: J2704; J2765; J7030